=== PATIENT | male | born 1995 | race Two or more races ===

== ENCOUNTER → 2016-08-19 | Outpatient (CLI) | payer BC, OTHER ==
--- NOTE | 2016-08-19 15:05 | REP ---
Right knee five views : There is no fracture or dislocation. Mineralization and joint spaces are normal. There are no calcifications or foreign bodies. Impression: Negative right knee . Signed by Flaco Millan MD 08/19/2016 02:56 P
== END ==
LOC: M LRY 14:02
PROVIDERS: ATTEND Nurse Practitioner Family
DX: M25.561 Pain in right knee (principal)